=== PATIENT | male | born 1970 | race Caucasian/White ===

== ENCOUNTER 2017-07-13 09:05 | Outpatient (CLI) | payer OTHER ==
--- NOTE | 2017-07-13 12:42 | XRAY Report ---
RIGHT SHOULDER: 07/13/2017 COMPARISON: None. INDICATION: Shoulder pain. TECHNIQUE: Three views of the right shoulder. FINDINGS: There is type 3 acromioclavicular separation. There are calcifications about the acromioclavicular joint and coracoclavicular ligament. Alignment appears otherwise anatomic. No acute bone findings are seen. There are moderate degenerative changes of the acromioclavicular joint. IMPRESSION: 1. TYPE 3 AC SEPARATION WITH OLD POST-TRAUMATIC CALCIFICATIONS ABOUT THE AC JOINT, INFERIOR CLAVICLE, AND CORACOCLAVICULAR LIGAMENT. 2. MODERATE AC JOINT ARTHROSIS. JOB #: [id number] EXT JOB #: [id number]
== END 2017-07-13 09:06 | disposition home or self-care (01) ==
LOC: DI.N 09:05
PROVIDERS: ATTEND Family Medicine
DX: S43.101A Unspecified dislocation of right acromioclavicular joint, initial encounter (principal); M19.011 Primary osteoarthritis, right shoulder